=== PATIENT | female | born 1965 | race African-American/Black ===

== ENCOUNTER 2023-09-25 20:16 | Emergency (ER) | payer OTHER ==
[~2023-09-25] VITALS: Ht 165.1 cm; Wt 76.8 kg
[2023-09-25 21:22] LABS: Urine Bacteria NONE SEEN /hpf (None Seen); Urine Blood Negative /uL (Negative); Urine Clarity Clear (Clear); Urine Color Colorless (Yellow); Urine Protein, UAD Negative (Negative); Urine Specific Gravity 1.012 (1.001-1.035); Urine WBC 8 /hpf (0 - 5); Urine pH 6.5 (5.0-8.0)
[2023-09-25 21:42] LABS: Basophils # (auto) 0.1 10 ^3/uL (0-0.2); Basophils % (auto) 1.1 % (0.0-2.0); Eosinophils # (auto) 0.2 10 ^3/uL (0-0.8); Hematocrit 39.7 % (36.0-46.0); Hemoglobin 13.2 g/dL (12.2-16.2); Lymphocytes # (auto) 3.2 10 ^3/uL (0.4-5.4); Lymphocytes % (auto) 47.6 % (10.0-50.0); Mean Corpuscular Hemoglobin 28.7 pg (28.0-32.0); Mean Corpuscular Hgb Conc. 33.1 g/dL (32.0-36.0); Mean Corpuscular Volume 86.6 fL (80.0-100.0); Monocytes # (auto) 0.5 10 ^3/uL (0-1.3); Monocytes % (auto) 7.1 % (0.0-12.0); Neutrophils # (auto) 2.7 10 ^3/uL (1.6-8.6); Neutrophils % (auto) 41.2 % (37.0-80.0); Red Blood Cells 4.59 10^6/uL (4.0-5.20); Red Cell Distribution Width 13.7 % (11.8-14.3); White Blood Cell 6.6 10^3/uL (4.4-10.8)
[2023-09-25 21:49] LABS: Chloride 110 mmol/L (98-107); Potassium 3.9 mmol/L (3.5-5.1); Sodium 143 mmol/L (136-145)
[2023-09-25 21:50] LABS: Anion Gap 3 (5-15); Carbon Dioxide 30 mmol/L (20-30)
[2023-09-25 21:51] LABS: Calcium 9.4 mg/dL (8.5-10.1)
[2023-09-25 21:55] LABS: Glucose 88 mg/dL (74-106)
[2023-09-25 21:56] LABS: BUN/Creatinine Ratio 9.8 (10.0-20.0); Blood Urea Nitrogen 11 mg/dL (9-23)
[2023-09-25] MEDS ORDERED: IBUP-1454 PO (22:51)
[2023-09-25] MEDS ORDERED: NITR-87 PO (22:51)
[2023-09-25] MEDS: NITROFURANTOIN 100 mg CAP PO ONE (23:02)
[2023-09-25 23:03] VITALS: BP 138/76; PULSE 65; RESP 18; TEMP 97.6; O2SAT 99
== END 2023-09-25 23:04 | disposition home or self-care (01) ==
LOC: ER 20:16
DX: M94.0 Chondrocostal junction syndrome [Tietze] (principal); N39.0 Urinary tract infection, site not specified; I10 Essential (primary) hypertension; Z88.5 Allergy status to narcotic agent
CPT/HCPCS: 36415; 80048; 81001; 84484; 85025; 93005